=== PATIENT | female | born 1955 | race Caucasian/White ===

== ENCOUNTER 2016-11-07 07:56 | Emergency (ER) | payer BC ==
[2016-11-07] MEDS ORDERED: Sodium Chloride 0.9% 10 ML Syringe FLUSH PRN (08:41)
--- NOTE | 2016-11-07 09:05 | CR ---
Chest 2V HISTORY: No Clinical Info FINDINGS: Heart size within normal limits. Pulmonary vasculature within normal limits. No evidence f or focal consolidation or cardiopulmonary process. IMPRESSION: No radiographic evidence for acute cardiopulmonary process.
[2016-11-07] MEDS ORDERED: Aspirin 81 MG Tab.Chew PO ONE (09:39)
[2016-11-07] MEDS ORDERED: Potassium Chloride 10% 20 MEQ/15 ML Soln 15 ML UD Cup PO ONE (09:47)
[2016-11-07 09:49] VITALS: BP 132/68
--- NOTE | 2016-11-07 09:57 | EDM.PDOC ---
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 It's gotten suddenly worse today. She has not seen a doctor for this. She says that any exertion at all causes shortness of breath. She is unable to sleep supine and frequently must sit up in a recliner at night. She has a frequent cough. She does have a history of some kind of valvular heart disease but has not had an echocardiogram and a number of years. For the pills are are extended release type. She's not under treatment for anything like this. She does have hypertension. She also has sleep apnea and uses C Pap. She never had any chest pain.. 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 Musculoskeletal Surgical History: Reports: Hip Replacement Other Musculoskeletal Surgeries/Procedures:: lumbar spine surgery Social & Family History - Tobacco Use Smoking Status *Q: Never Smoker - Caffeine Use Caffeine Use: Reports: Coffee - Recreational Drug Use Recreational Drug Use: No ED ROS GENERAL - Review of Systems Review Of Systems: See Below Constitutional: Reports: No Symptoms HEENT: Reports: No Symptoms Respiratory: Reports: Shortness of Breath Cardiovascular: Reports: Dyspnea on Exertion, PND Endocrine: Reports: No Symptoms GI/Abdominal: Reports: No Symptoms : Reports: No Symptoms ED EXAM, GENERAL - Physical Exam Exam: See Below Exam Limited By: No Limitations General Appearance: Alert, Mild Distress (This lady appears to be dyspneic and is tachycardic.), Obese Eye Exam: Bilateral Eye: Normal Inspection Throat/Mouth: Normal Inspection Neck: Normal Inspection Respiratory/Chest: Lungs Clear Cardiovascular: Normal Peripheral Pulses, Regular Rate, Rhythm, Systolic Murmur (There is a faint high-pitched squeaking type of murmur along the lower left sternal border.) GI/Abdominal: Non-Tender Back Exam: Normal Inspection Extremities: Normal Inspection Neurological: Alert, Oriented Psychiatric: Normal Affect Skin Exam: Warm, Dry Course - Vital Signs Last Recorded V/S: Last Vital Signs Temp 35.6 C 11/07/16 09:10 Pulse 97 11/07/16 09:48 Resp 18 11/07/16 09:48 BP 132/68 11/07/16 09:48 Pulse Ox 95 11/07/16 09:48 - Orders/Labs/Meds Orders: Active Orders 24 hr Category Date Time Status EKG Documentation Completion [RC] ASDIRECTED Care 11/07/16 08:42 Active Sodium Chloride 0.9% [Saline Flush] Med 11/07/16 08:41 Active 10 ml FLUSH ASDIRECTED PRN Saline Lock Insert [OM.PC] Urgent Oth 11/07/16 08:41 Ordered EKG 12 Lead [EK] Urgent Ther 11/07/16 08:41 Ordered Medication Orders Sodium Chloride (Saline Flush) 10 ml FLUSH ASDIRECTED PRN PRN Reason: Keep Vein Open Last Admin: 11/07/16 09:03 Dose: 10 ml Labs: Laboratory Tests 11/07/16 11/07/16 11/07/16 Range/Units 08:56 08:56 08:56 WBC 8.7 (4.5-11.0) K/uL RBC 4.52 (3.30-5.50) M/uL Hgb 15.4 H (12.0-15.0) g/dL Hct 43.0 (36.0-48.0) % MCV 95 (80-98) fL MCH 34 H (27-31) pg MCHC 36 (32-36) % Plt Count 193 (150-400) K/uL Neut % (Auto) 56 (36-66) % Lymph % (Auto) 31 (24-44) % [place] % (Auto) 9 H (2-6) % Eos % (Auto) 3 (2-4) % Baso % (Auto) 1 (0-1) % PT 10.7 (9.5-12.0) sec INR 1.00 (0.80-1.20) Sodium 133 L (140-148) mmol/L Potassium 3.1 L (3.6-5.2) mmol/L Chloride 93 L (100-108) mmol/L Carbon Dioxide 29 (21-32) mmol/L Anion Gap 14.1 H (5.0-14.0) mmol/L BUN 39 H (7-18) mg/dL Creatinine 1.6 H (0.6-1.0) mg/dL Est Cr Clr Drug Dosing 35.45 mL/min Estimated GFR (MDRD) 33 L (>60) Glucose 233 H (74-106) mg/dL Calcium 10.1 (8.5-10.1) mg/dL Total Bilirubin 0.4 (0.2-1.0) mg/dL AST 34 (15-37) U/L ALT 37 (12-78) U/L Alkaline Phosphatase 60 (46-116) U/L Troponin I 0.065 H* (0.000-0.056) ng/mL [id number] Pept 296 H (5-125) pg/mL Total Protein 7.9 (6.4-8.2) g/dL Albumin 3.7 (3.4-5.0) g/dL Globulin 4.2 H (2.3-3.5) g/dL Albumin/Globulin Ratio 0.9 L (1.2-2.2) Meds: Medications Generic Name Dose Route Start Last Admin Trade Name Freq PRN Reason Stop Dose Admin Sodium Chloride 10 ml 11/07/16 08:41 11/07/16 09:03 Saline Flush FLUSH 10 ml ASDIRECTED PRN Administration Keep Vein Open Discontinued Medications Generic Name Dose Route Start Last Admin Trade Name Freq PRN Reason Stop Dose Admin Aspirin 324 mg 11/07/16 09:39 11/07/16 09:47 Aspirin PO 11/07/16 09:40 324 mg ONETIME ONE Administration Potassium Chloride 20 meq 11/07/16 09:47 Potassium Chloride Solution PO 11/07/16 09:48 ONETIME ONE - Radiology Interpretation Free Text/Narrative:: Chest x-ray shows normal heart size normal lung markings - Re-Assessments/Exams Free Text/Narrative Re-Assessment/Exam: 11/07/16 09:57 EKG shows a sinus rhythm at 96 bpm there is some abnormal R wave progression with late transition significant R waves only appear in the 6. There appears to be some LVH also. Nothing that looks like acute ischemia. Free Text/Narrative Re-Assessment/Exam: 11/07/16 09:58 The patient is feeling a little more comfortable she's returned from x-ray and has rested for a while. Labs show an elevated troponin. I spoke with the manager of selection and assessment and the hospitalist Dr. White at [facility] which is patient's choice of hospital and she has been accepted. Plan will be to do an echocardiogram and probably catheterization. Patient did receive 20 mEq of KCl in her facility. And she'll be transferred by ambulance shortly. Departure - Departure Time of Disposition: 10:00 Disposition: DC/Tfer to Acute Hospital 02 Condition: Serious Clinical Impression: Non-STEMI (non-ST elevated myocardial infarction) - Discharge Information Forms: ED Department Discharge - My Orders Last 24 Hours: My Active Orders 11/07/16 08:41 Sodium Chloride 0.9% [Saline Flush] 10 ml FLUSH ASDIRECTED PRN Saline Lock Insert [OM.PC] Urgent EKG 12 Lead [EK] Urgent 11/07/16 08:42 EKG Documentation Completion [RC] ASDIRECTED - Assessment/Plan Last 24 Hours: My Active Orders 11/07/16 08:41 Sodium Chloride 0.9% [Saline Flush] 10 ml FLUSH ASDIRECTED PRN Saline Lock Insert [OM.PC] Urgent EKG 12 Lead [EK] Urgent 11/07/16 08:42 EKG Documentation Completion [RC] ASDIRECTED
== END 2016-11-07 10:38 ==
LOC: JP.ED 07:56
DX: I21.4 Non-ST elevation (NSTEMI) myocardial infarction (principal); I10 Essential (primary) hypertension; M19.90 Unspecified osteoarthritis, unspecified site; E03.9 Hypothyroidism, unspecified; Z90.49 Acquired absence of other specified parts of digestive tract; Z96.649 Presence of unspecified artificial hip joint; Z98.890 Other specified postprocedural states; Z79.899 Other long term (current) drug therapy; Z88.1 Allergy status to other antibiotic agents
CPT/HCPCS: 36415; 71020; 80053; 83880; 84484; 85025; 85610; 93005; 99285; A9270; J7050

== ENCOUNTER 2022-10-22 11:25 | Inpatient (IN) | payer MEDICARE ==
[~2022-10-22 11:25] MED LIST: Bupivacaine 0.5% 50 ML MDV ONE; Lactated Ringers 1,000 ML IV SCH; Midazolam 1 MG/ML 2 ML SDV ONE; Nozin Nasal Sanitizer NASBOTH ONE; Propofol 200 MG/20 ML SDV ONE; fentaNYL 100 MCG/2 ML SDV ONE
[2022-10-22] MEDS ORDERED: ceFAZolin 2 GM in Premix Bag 1 BAG IV ONE (11:30)
[2022-10-22] MEDS ORDERED: Tranexamic Acid 1,000 MG in Sodium Chloride 0.9% 50 ML IV ONE (12:15)
[2022-10-22] MEDS ORDERED: Ondansetron 4 MG/2 ML SDV IVPUSH PRN (14:46)
[2022-10-22] MEDS ORDERED: Docusate Sodium 100 MG Cap PO PRN (14:46)
[2022-10-22] MEDS ORDERED: Sodium Chloride 0.9% 1,000 ML IV SCH (15:00)
[2022-10-22] MEDS ORDERED: SEMAGLUTIDE 0.25 MG/0.4 ML SQ SCH (15:00)
[2022-10-22] MEDS ORDERED: Propofol 200 MG/20 ML SDV ONE (15:26)
[2022-10-22] MEDS ORDERED: Gabapentin 300 MG Cap PO PRN (15:42)
[2022-10-22] MEDS: Acetaminophen 325 MG Tab PO SCH (17:49)
[2022-10-22] MEDS: oxyCODONE 5 MG Tab PO PRN (18:02)
[2022-10-22] MEDS: Morphine 2 MG/ML SYRINGE IVPUSH PRN ×2 (18:34→22:46)
[2022-10-22] MEDS ORDERED: tiZANidine 2 MG Tab PO PRN (19:30)
[2022-10-22] MEDS: Ketorolac 15 MG/ML SDV IVPUSH SCH (19:39)
[2022-10-22] MEDS: Carvedilol 12.5 MG Tab PO SCH (21:26)
[2022-10-22] MEDS: Aspirin 325 MG Tab.EC PO SCH (21:26)
[2022-10-22] MEDS: Nozin Nasal Sanitizer NASBOTH SCH (21:27)
[2022-10-22] MEDS: ceFAZolin 2 GM in Premix Bag 1 BAG IV SCH (21:27)
[2022-10-23] MEDS: oxyCODONE 5 MG Tab PO PRN ×3 (00:17→21:55)
[2022-10-23] MEDS: Acetaminophen 325 MG Tab PO SCH ×4 (00:17→18:10)
[2022-10-23] MEDS: Ketorolac 15 MG/ML SDV IVPUSH SCH ×3 (03:53→19:40)
[2022-10-23] MEDS: ceFAZolin 2 GM in Premix Bag 1 BAG IV SCH ×2 (06:55→15:24)
[2022-10-23] MEDS: Levothyroxine 25 MCG Tab PO SCH (07:58)
[2022-10-23] MEDS: Escitalopram 10 MG Tab PO SCH (08:00)
[2022-10-23] MEDS: Aspirin 325 MG Tab.EC PO SCH ×2 (08:00→21:55)
[2022-10-23] MEDS: Multivitamins with Iron/Calcium/Folic Acid/Minerals Tab PO SCH (08:00)
[2022-10-23] MEDS: Nozin Nasal Sanitizer NASBOTH SCH ×2 (08:00→21:53)
[2022-10-23] MEDS: Spironolactone 25 MG Tab PO SCH (08:01)
[2022-10-23] MEDS: Carvedilol 12.5 MG Tab PO SCH ×2 (08:04→21:55)
[2022-10-23] MEDS: Allopurinol 100 MG Tab PO SCH (08:04)
[2022-10-24] MEDS: Acetaminophen 325 MG Tab PO SCH ×4 (01:13→12:25)
[2022-10-24] MEDS: Ketorolac 15 MG/ML SDV IVPUSH SCH ×2 (06:08→12:27)
[2022-10-24] MEDS: oxyCODONE 5 MG Tab PO PRN ×3 (06:19→12:21)
[2022-10-24] MEDS: Levothyroxine 25 MCG Tab PO SCH (07:24)
[2022-10-24] MEDS: Nozin Nasal Sanitizer NASBOTH SCH (08:48)
[2022-10-24] MEDS: Escitalopram 10 MG Tab PO SCH (08:49)
[2022-10-24] MEDS: Allopurinol 100 MG Tab PO SCH (08:49)
[2022-10-24] MEDS: Spironolactone 25 MG Tab PO SCH (08:49)
[2022-10-24] MEDS: Carvedilol 12.5 MG Tab PO SCH (08:49)
[2022-10-24] MEDS: Multivitamins with Iron/Calcium/Folic Acid/Minerals Tab PO SCH (08:49)
[2022-10-24] MEDS: Aspirin 325 MG Tab.EC PO SCH (08:49)
[2022-10-24 11:45] VITALS: BP 115/71; PULSE 78
== END 2022-10-24 14:45 | disposition home or self-care (01) | DRG 470 ==
LOC: JP.SDS 11:25 → JP.2SS 17:10 → JP.SDS 10-23 08:13 → JP.2SS 10-23 08:14
PROVIDERS: ADMIT Specialist; ATTEND Specialist
PROC: 0SRC069 Replacement of Right Knee Joint with Oxidized Zirconium on Polyethylene Synthetic Substitute, Cemented, Open Approach (ICD-10-PCS; principal; 2022-10-22)
DX: M17.11 Unilateral primary osteoarthritis, right knee (principal); I42.9 Cardiomyopathy, unspecified; I10 Essential (primary) hypertension; I95.9 Hypotension, unspecified; F32.A Depression, unspecified; E11.21 Type 2 diabetes mellitus with diabetic nephropathy; M79.7 Fibromyalgia; H40.9 Unspecified glaucoma; E03.9 Hypothyroidism, unspecified; G43.909 Migraine, unspecified, not intractable, without status migrainosus; G47.33 Obstructive sleep apnea (adult) (pediatric); Z96.641 Presence of right artificial hip joint; E78.2 Mixed hyperlipidemia; Z90.49 Acquired absence of other specified parts of digestive tract; Z98.890 Other specified postprocedural states; Z88.8 Allergy status to other drugs, medicaments and biological substances
CPT/HCPCS: 97110-GP; 97116-GP; 97161-GP; 97165-GO; A9270-GY; C1713; C1776; J0690; J1885; J2250; J2270; J2405; J2704; J3010; J3490; J7030; J7120

== ENCOUNTER 2023-01-23 09:08 | Inpatient (IN) | payer MEDICARE ==
[2023-01-23 09:42] LABS: HEMATOCRIT 38.8 % (34.3-46.0); HEMOGLOBIN 13.8 g/dL (11.2-15.5); MEAN CORPUSCULAR HGB CONC 35.6 g/dL (31.6-35.5); MEAN CORPUSCULAR VOLUME 95.6 fL (81.4-99.0); RED BLOOD CELL COUNT 4.06 M/uL (3.77-5.24); WHITE BLOOD CELL COUNT,WBC 7.1 K/uL (3.2-11.0)
[2023-01-23 10:04] LABS: ALANINE AMINOTRANSFERASE,ALT 27 U/L (12-78); ALBUMIN 3.8 g/dL (3.4-5.0); ALKALINE PHOSPHATASE 60 U/L (46-116); ASPARTATE AMNIOTRANSFERASE,AST 19 U/L (15-37); BILIRUBIN TOTAL 0.5 mg/dL (0.2-1.0); BLOOD UREA NITROGEN,BUN 21 mg/dL (7-18); CARBON DIOXIDE,CO2 23 mmol/L (21-32); CHLORIDE,CL 100 mmol/L (100-108); CREATININE 1.1 mg/dL (0.6-1.0); ESTIMATED GFR 55 mL/min (>60); GLUCOSE RANDOM 165 mg/dL (74-106); POTASSIUM,K 4.2 mmol/L (3.6-5.2); PROTEIN TOTAL,TP 7.5 g/dL (6.4-8.2); SODIUM,NA 132 mmol/L (140-148)
[2023-01-23] MEDS ORDERED: Midazolam 1 MG/ML 2 ML SDV ONE ×2 (10:12→13:12)
[2023-01-23] MEDS ORDERED: Propofol 200 MG/20 ML SDV ONE ×2 (10:12→13:24)
[2023-01-23] MEDS ORDERED: fentaNYL 100 MCG/2 ML SDV ONE (10:12)
[2023-01-23 10:28] LABS: ANION GAP 13.2 mmol/L (5.0-14.0)
[2023-01-23] MEDS ORDERED: Lactated Ringers 1,000 ML IV SCH (10:30)
[2023-01-23] MEDS: Nozin Nasal Sanitizer NASBOTH SCH ×2 (11:08→20:19)
[2023-01-23] MEDS ORDERED: ceFAZolin 2 GM in Premix Bag 1 BAG IV ONE (11:30)
[2023-01-23] MEDS ORDERED: ceFAZolin 2 GM in Sodium Chloride 0.9% 50 ML IV ONE (11:30)
[2023-01-23] MEDS ORDERED: Bupivacaine 0.5% 50 ML MDV ONE (12:14)
[2023-01-23] MEDS ORDERED: Ondansetron 4 MG/2 ML SDV IVPUSH PRN (12:53)
[2023-01-23] MEDS ORDERED: Docusate Sodium 100 MG Cap PO PRN (12:53)
[2023-01-23] MEDS ORDERED: Magnesium Hydroxide 400 MG/5 ML Susp 30 ML Cup PO PRN (12:53)
[2023-01-23] MEDS ORDERED: Morphine 2 MG/ML SYRINGE IVPUSH PRN (12:53)
[2023-01-23] MEDS ORDERED: Ketorolac 30 MG/ML SDV IVPUSH PRN (12:53)
[2023-01-23] MEDS ORDERED: Non-Formulary Medication 1 Each (Gabapentin [Neurontin] 600 MG Tablet) PO PRN (12:57)
[2023-01-23] MEDS ORDERED: ceFAZolin 2 GM in Sodium Chloride 0.9% 100 ML IV SCH (13:00)
[2023-01-23] MEDS ORDERED: Gabapentin 300 MG Cap PO PRN (13:55)
[2023-01-23] MEDS: Ketorolac 15 MG/ML SDV IVPUSH PRN (15:43)
[2023-01-23] MEDS: oxyCODONE 5 MG Tab PO PRN ×2 (15:50→22:15)
[2023-01-23] MEDS: Acetaminophen 325 MG Tab PO SCH ×2 (15:51→22:15)
[2023-01-23] MEDS: Sodium Chloride 0.9% 1,000 ML IV SCH (15:52)
[2023-01-23] MEDS: ceFAZolin 2 GM in Premix Bag 1 BAG IV SCH (20:16)
[2023-01-23] MEDS: Carvedilol 12.5 MG Tab PO SCH (20:21)
[2023-01-23] MEDS: Amoxicillin/Clavulanate K 875-125 MG Tab PO SCH (20:21)
[2023-01-23] MEDS ORDERED: Nozin Nasal Sanitizer NASBOTH SCH (21:00)
[2023-01-23] MEDS ORDERED: Non-Formulary Medication 1 Each (Carvedilol [Carvedilol] 25 MG Tablet) PO SCH (21:00)
[2023-01-24] MEDS: Sodium Chloride 0.9% 1,000 ML IV SCH (00:24)
[2023-01-24] MEDS: Acetaminophen 325 MG Tab PO SCH ×4 (04:06→22:36)
[2023-01-24] MEDS: oxyCODONE 5 MG Tab PO PRN ×3 (04:07→19:48)
[2023-01-24] MEDS: ceFAZolin 2 GM in Premix Bag 1 BAG IV SCH (04:07)
[2023-01-24] MEDS: Levothyroxine 25 MCG Tab PO SCH (07:40)
[2023-01-24] MEDS ORDERED: Non-Formulary Medication 1 Each (Levothyroxine [Levothyroxine] 75 MCG Tablet) PO SCH (09:00)
[2023-01-24] MEDS ORDERED: Non-Formulary Medication 1 Each (Spironolactone [Spironolactone] 50 MG Tablet) PO SCH (09:00)
[2023-01-24] MEDS ORDERED: Non-Formulary Medication 1 Each (Allopurinol [Zyloprim] 300 MG Tablet) PO SCH (09:00)
[2023-01-24] MEDS ORDERED: Non-Formulary Medication 1 Each (Magnesium Oxide [Magnesium Oxide] 400 MG Tablet) PO SCH (09:00)
[2023-01-24] MEDS: Carvedilol 12.5 MG Tab PO SCH ×3 (09:01→20:06)
[2023-01-24] MEDS: Amoxicillin/Clavulanate K 875-125 MG Tab PO SCH ×3 (09:02→20:05)
[2023-01-24] MEDS: Escitalopram 10 MG Tab PO SCH (09:02)
[2023-01-24] MEDS: Nozin Nasal Sanitizer NASBOTH SCH ×3 (09:02→20:05)
[2023-01-24] MEDS: Aspirin 325 MG Tab.EC PO SCH ×3 (09:02→20:06)
[2023-01-24] MEDS: Magnesium Oxide 400 MG Tab PO SCH (09:02)
[2023-01-24] MEDS: Spironolactone 25 MG Tab PO SCH (09:03)
[2023-01-24] MEDS: Allopurinol 100 MG Tab PO SCH (09:03)
[2023-01-24] MEDS: Ketorolac 15 MG/ML SDV IVPUSH PRN (09:19)
[2023-01-25] MEDS: Ketorolac 15 MG/ML SDV IVPUSH PRN (01:13)
[2023-01-25] MEDS: oxyCODONE 5 MG Tab PO PRN (02:47)
[2023-01-25] MEDS: Acetaminophen 325 MG Tab PO SCH ×2 (02:48→03:06)
[2023-01-25] MEDS: Levothyroxine 25 MCG Tab PO SCH (07:39)
[2023-01-25] MEDS: Nozin Nasal Sanitizer NASBOTH SCH (08:46)
[2023-01-25] MEDS: Spironolactone 25 MG Tab PO SCH (08:47)
[2023-01-25] MEDS: Amoxicillin/Clavulanate K 875-125 MG Tab PO SCH (08:48)
[2023-01-25] MEDS: Carvedilol 12.5 MG Tab PO SCH (08:48)
[2023-01-25] MEDS: Aspirin 325 MG Tab.EC PO SCH (08:51)
[2023-01-25] MEDS: Magnesium Oxide 400 MG Tab PO SCH (08:52)
[2023-01-25] MEDS: Escitalopram 10 MG Tab PO SCH (08:52)
[2023-01-25 08:54] VITALS: BP 116/56; PULSE 81
[2023-01-25] MEDS: Allopurinol 100 MG Tab PO SCH (08:55)
[2023-01-27] MEDS ORDERED: SEMAGLUTIDE 0.25 MG/0.4 ML SQ SCH (08:00)
== END 2023-01-25 10:52 | disposition home or self-care (01) | DRG 470 ==
LOC: JP.SDS 09:08 → JP.MS 12:54 → JP.SDS 01-24 12:43
PROVIDERS: ADMIT Specialist; ATTEND Physician Assistant
PROC: 0SRD0J9 Replacement of Left Knee Joint with Synthetic Substitute, Cemented, Open Approach (ICD-10-PCS; principal; 2023-01-23)
DX: M17.12 Unilateral primary osteoarthritis, left knee (principal); I42.2 Other hypertrophic cardiomyopathy; K50.90 Crohn's disease, unspecified, without complications; E11.21 Type 2 diabetes mellitus with diabetic nephropathy; I25.2 Old myocardial infarction; E11.59 Type 2 diabetes mellitus with other circulatory complications; I10 Essential (primary) hypertension; F32.A Depression, unspecified; G43.909 Migraine, unspecified, not intractable, without status migrainosus; E03.9 Hypothyroidism, unspecified; E78.2 Mixed hyperlipidemia; Z88.1 Allergy status to other antibiotic agents; Z88.8 Allergy status to other drugs, medicaments and biological substances; Z98.890 Other specified postprocedural states; Z90.49 Acquired absence of other specified parts of digestive tract; Z79.82 Long term (current) use of aspirin; Z96.642 Presence of left artificial hip joint; Z86.79 Personal history of other diseases of the circulatory system; G47.33 Obstructive sleep apnea (adult) (pediatric); Z79.890 Hormone replacement therapy; M79.7 Fibromyalgia; Z79.899 Other long term (current) drug therapy
CPT/HCPCS: 27447; 36415; 73560 ×2; 80053; 82947; 85027; 97110; 97161; A9270 ×20; C1713; C1776 ×4; J0690 ×3; J1885 ×2; J2250 ×2; J2270; J2704 ×2; J3010; J3490; J7030 ×2; J7120; 97116-GP; 97530-GP